=== PATIENT | female | born 1960 | race Native Hawaiian/Other Pacific Islander ===

== ENCOUNTER 2016-12-09 22:05 | Outpatient (CLI) | payer OTHER ==
[~2016-12-09 22:05] MED LIST: PAXIL20 MG PO
== END 2016-12-09 22:23 | disposition short-term general hospital (02) ==
LOC: AMB 22:05
DX: G81.94 Hemiplegia, unspecified affecting left nondominant side (principal); R29.810 Facial weakness; R51 Headache; Z86.73 Personal history of transient ischemic attack (TIA), and cerebral infarction without residual deficits
CPT/HCPCS: A0425; A0427

== ENCOUNTER 2017-12-09 11:01 | Emergency (ER) | payer OTHER ==
[~2017-12-09] VITALS: Ht 149.9 cm; Wt 44.5 kg
[2017-12-09 11:09] VITALS: TEMP 97
[2017-12-09 12:25] LABS: PLATELET COUNT 213 K/uL (152-353)
[2017-12-09 12:31] LABS: POTASSIUM 3.6 mmol/L (3.6-5.2)
[2017-12-09 13:09] VITALS: BP 118/72
== END 2017-12-09 13:30 | disposition home or self-care (01) ==
LOC: ED 11:01
PROVIDERS: Internal Medicine
DX: J11.1 Influenza due to unidentified influenza virus with other respiratory manifestations (principal)
CPT/HCPCS: 36415; 80053; 83880; 85027; 99283

== ENCOUNTER 2018-04-10 07:00 | Emergency (ER) | payer OTHER ==
[~2018-04-10] VITALS: Ht 149.9 cm; Wt 45.8 kg
[2018-04-10 07:44] VITALS: TEMP 99.3
[2018-04-10 08:13] LABS: PLATELET COUNT 234 K/uL (152-353)
[2018-04-10 11:00] VITALS: BP 104/63
== END 2018-04-10 12:20 | disposition home or self-care (01) ==
LOC: ED 07:39
DX: K52.9 Noninfective gastroenteritis and colitis, unspecified (principal)
CPT/HCPCS: 36415; 80053; 82150; 83690; 83735; 85027; 96374; 99284; J2405; Q9963

== ENCOUNTER 2018-06-23 09:46 | Emergency (ER) | payer OTHER ==
[~2018-06-23] VITALS: Ht 149.9 cm; Wt 45.8 kg
[2018-06-23 09:45] VITALS: BP 135/73; TEMP 97.7
== END 2018-06-23 10:35 | disposition home or self-care (01) ==
LOC: ED 09:46
DX: S93.402A Sprain of unspecified ligament of left ankle, initial encounter (principal); W10.9XXA Fall (on) (from) unspecified stairs and steps, initial encounter
CPT/HCPCS: 99282

== ENCOUNTER 2020-02-26 14:25 | Observation (INO) | payer OTHER ==
[~2020-02-26] VITALS: Ht 149.9 cm; Wt 42.0 kg
[2020-02-26 17:37] LABS: POTASSIUM 4.9 mmol/L (3.6-5.2)
[2020-02-26 20:00] VITALS: BP 118/67; TEMP 98.1
[2020-02-27] VITALS: BP 92/46; TEMP 98
[2020-02-27 04:00] VITALS: BP 97/56; TEMP 99.4
[2020-02-27 04:44] LABS: POTASSIUM 3.7 mmol/L (3.6-5.2)
[2020-02-27 05:24] LABS: PLATELET COUNT 170 K/uL (152-353)
[2020-02-27 08:00] VITALS: BP 117/59; TEMP 98.5
[2020-02-27 08:21] VITALS: BP 104/86; TEMP 98.6; Ht 149.9 cm; Wt 42.0 kg
[2020-02-27 12:00] VITALS: BP 132/88; TEMP 97.9
[2020-02-27 20:00] VITALS: BP 112/46; TEMP 98.1
== END 2020-02-27 15:40 | disposition home or self-care (01) ==
LOC: MED/SURG 14:25
PROVIDERS: ADMIT Family Medicine
DX: R07.0 Pain in throat (principal); T50.901A Poisoning by unspecified drugs, medicaments and biological substances, accidental (unintentional), initial encounter; R53.83 Other fatigue; E86.0 Dehydration; K20.9 Esophagitis, unspecified; T54.3X1A Toxic effect of corrosive alkalis and alkali-like substances, accidental (unintentional), initial encounter
CPT/HCPCS: 36415; 80053; 81000; 85027; 99220; G0378; G0379

== ENCOUNTER 2020-07-14 09:55 | Emergency (ER) | payer OTHER ==
[2020-07-14 19:25] LABS: POTASSIUM 3.4 mmol/L (3.6-5.2); SODIUM 138 mmol/L (136-145)
== END 2020-07-14 12:21 | disposition home or self-care (01) ==
LOC: ED 09:55
PROVIDERS: Hospitalist
DX: R07.89 Other chest pain (principal); K21.9 Gastro-esophageal reflux disease without esophagitis
CPT/HCPCS: 80053; 82550; 84484; 93005; 96374; 96375; 99284

== ENCOUNTER 2020-07-15 11:55 | Observation (INO) | payer OTHER ==
[~2020-07-15] VITALS: Ht 149.9 cm; Wt 46.3 kg
[2020-07-15 11:55] VITALS: BP 83/56; TEMP 99.2; Ht 149.9 cm; Wt 46.3 kg
[2020-07-15 12:53] LABS: PLATELET COUNT 157 K/uL (152-353)
[2020-07-15 13:22] LABS: POTASSIUM 3.3 mmol/L (3.6-5.2)
[2020-07-15 16:00] VITALS: BP 81/45; TEMP 98.6
[2020-07-15 20:00] VITALS: BP 74/39; TEMP 99
[2020-07-16 00:05] VITALS: BP 94/48; TEMP 98.6
[2020-07-16 04:13] VITALS: BP 76/38; TEMP 98.2
[2020-07-16 06:14] LABS: PLATELET COUNT 122 K/uL (152-353)
[2020-07-16 06:24] LABS: POTASSIUM 3.2 mmol/L (3.6-5.2)
[2020-07-16 08:00] VITALS: BP 88/46; TEMP 98.1
[2020-07-16 12:00] VITALS: BP 100/52; TEMP 98.3
[2020-07-16 16:00] VITALS: BP 107/45; TEMP 98.2
[2020-07-16 20:00] VITALS: BP 98/60; TEMP 97.7
[2020-07-17] VITALS: BP 124/59; TEMP 97.9
[2020-07-17 04:04] VITALS: BP 114/58; TEMP 97.8
[2020-07-17 05:31] LABS: PLATELET COUNT 120 K/uL (152-353)
[2020-07-17 05:53] LABS: POTASSIUM 4.2 mmol/L (3.6-5.2)
[2020-07-17] MEDS ORDERED: PANTOPRAZOLE 40MG TA PO (08:10)
[2020-07-17 12:00] VITALS: BP 134/66; TEMP 98
[2020-07-17 16:00] VITALS: BP 133/75; TEMP 98
[2020-07-17 20:02] VITALS: BP 98/59; TEMP 98.1
[2020-07-18] VITALS: BP 124/68; TEMP 98.1
[2020-07-18 04:00] VITALS: BP 107/50; TEMP 97.5
[2020-07-18 05:07] LABS: PLATELET COUNT 160 K/uL (152-353)
[2020-07-18 05:24] LABS: POTASSIUM 3.6 mmol/L (3.6-5.2)
[2020-07-18 08:00] VITALS: BP 140/55; TEMP 98.3
[2020-07-18 11:58] VITALS: BP 126/53; TEMP 97.9
[2020-07-18 16:00] VITALS: BP 121/57; TEMP 98.3
== END 2020-07-18 17:32 | disposition home or self-care (01) ==
LOC: MED/SURG 11:55
PROVIDERS: ADMIT Family Medicine
DX: J44.1 Chronic obstructive pulmonary disease with (acute) exacerbation (principal); Z72.0 Tobacco use; E46 Unspecified protein-calorie malnutrition; Z03.818 Encounter for observation for suspected exposure to other biological agents ruled out; R74.8 Abnormal levels of other serum enzymes; E86.0 Dehydration; M13.88 Other specified arthritis, other site
CPT/HCPCS: 36415; 80053; 82728; 83735; 84100; 84443; 85027; 85379; 86140; 87040; 87070; 87077; 87205; 87635; 93005; 94668; 94760; 99220; G0378; G0379; J0456; J0696; J1650; J2405; J2930; U0003

== ENCOUNTER → 2021-04-20 | Outpatient (CLI) | payer OTHER ==
[~2021-04-20] MED LIST changes: +PANTOPRAZOLE 40MG TA PO
[2021-04-30 13:14] LABS: POTASSIUM 3.7 mmol/L (3.6-5.2)
== END ==
LOC: US 10:30
PROVIDERS: ATTEND Nurse Practitioner Family
DX: R10.11 Right upper quadrant pain (principal); R63.4 Abnormal weight loss
CPT/HCPCS: 36415; 80053; 82150; 83690; 84443

== ENCOUNTER 2021-04-25 11:38 | Outpatient (CLI) | payer OTHER | END 2021-04-25 23:59 | disposition home or self-care (01) | LOC: LABW 11:38 | PROVIDERS: ATTEND Nurse Practitioner Family | DX: R07.81 Pleurodynia (principal) | CPT/HCPCS: 36415; 85379 ==

== ENCOUNTER 2021-05-25 13:07 | Outpatient (CLI) | payer OTHER | END 2021-05-25 22:08 | disposition home or self-care (01) | LOC: RAD 13:07 | PROVIDERS: ATTEND Nurse Practitioner Family | DX: U07.1 COVID-19 (principal) ==

== ENCOUNTER 2022-03-13 08:59 | Outpatient (CLI) | payer OTHER ==
[2022-03-13 09:41] LABS: PLATELET COUNT 169 K/uL (152-353)
[2022-03-13 09:53] LABS: POTASSIUM 4.5 mmol/L (3.6-5.2)
== END 2022-03-13 19:01 | disposition home or self-care (01) ==
LOC: LABW 08:59
PROVIDERS: ATTEND Nurse Practitioner Family
DX: M94.0 Chondrocostal junction syndrome [Tietze] (principal)
CPT/HCPCS: 36415; 80053; 82550; 84484; 85027; 93005

== ENCOUNTER 2022-04-27 14:29 | Outpatient (CLI) | payer OTHER ==
[~2022-04-27] VITALS: Ht 149.9 cm; Wt 44.0 kg
--- NOTE | 2022-04-27 15:55 | NUR ---
1426 PT AMBULATED TO ROOM 1127 FOR OP INFUSION. VS OBTAINED. 24G PIV X 1 ATTEMPT TO LAC. FLUSHED WITH 10 ML NS SECURED WITH TAPE. 1451 IVP OVER 30 SECONDS FOLLOWED BY 10ML NS FLUSH. PT TOLERATED WITH NO COMPLAINTS WILL MONITOR VS. 1520 IV D/C INTACT SITE CARE PROVIDED. 1558 PT TOLERATED INFUSION WITH NO ADVERSE REACTIONS. VS OBTAINED PT AMBULATED OUT OF FACILITY TO POV ALONE.
== END 2022-04-27 21:19 | disposition home or self-care (01) ==
LOC: INF 14:29
PROVIDERS: ATTEND Family Medicine
DX: Z23 Encounter for immunization (principal); U07.1 COVID-19
CPT/HCPCS: 96374; Q0222

== ENCOUNTER 2022-05-09 14:31 | Outpatient (CLI) | payer OTHER ==
[2022-05-09 15:09] LABS: POTASSIUM 3.4 mmol/L (3.6-5.2); SODIUM 141 mmol/L (136-145)
== END 2022-05-09 18:57 | disposition home or self-care (01) ==
LOC: LABW 14:31
PROVIDERS: ATTEND Nurse Practitioner Family
DX: U07.1 COVID-19 (principal)
CPT/HCPCS: 36415; 80053; 82550; 82553; 84484; 85379; 93005

== ENCOUNTER 2023-01-02 12:46 | Outpatient (CLI) | payer BC | END 2023-01-02 19:56 | disposition home or self-care (01) | LOC: RAD 12:46 | PROVIDERS: ATTEND Nurse Practitioner Family | DX: R13.19 Other dysphagia (principal) ==

== ENCOUNTER 2023-03-12 11:58 | Outpatient (CLI) | payer BC ==
[2023-03-12 12:26] LABS: POTASSIUM 3.7 mmol/L (3.6-5.2); SODIUM 139 mmol/L (136-145)
== END 2023-03-12 20:04 | disposition home or self-care (01) ==
LOC: RESP 11:58
PROVIDERS: ATTEND Nurse Practitioner Family
DX: F43.0 Acute stress reaction (principal)
CPT/HCPCS: 36415; 80053; 82550; 82553; 84484; 93005